=== PATIENT | female | born 1925 | race Caucasian/White ===

== ENCOUNTER 2016-09-04 11:19 | Observation (INO) | payer MEDICARE ==
[2016-09-04] MEDS ORDERED: Pepcid 20 MG VIAL IV ONE ×2 (11:29→11:40)
--- NOTE | 2016-09-04 11:33 | ERPHSYRPT ---
- History of Present Illness Time Seen by Provider: 09/04/16 11:22 Historian: patient, EMS Patient Subjective Stated Complaint: pt arrived per ambulance from home due to abd pain under both breast that radiates to back after eating, nausea no vomiting, Triage Nursing Assessment: pt alert resp easy, skin w/d pale. cehst clear, edema to lower legs taht pt states is normal for her, pt has not been out of house for 4 years now Physician History: CC: abd pain Hx: 89 y/o patient of Dr Aleman who has been home bound for the past 4 years. She has no prior abd surgeries. She reports RUQ and epigastric abd pain radiating to her back for the past two weeks associated with eating and drinking. Started with fried chicken. No vomiting. No fever or chills. Pain continued so she came to ER per EMS. No chest pain. Pain moderate after eating. Timing/Duration: week(s) (2) Abdominal Pain Onset Location: RUQ, epigastric Pain Radiation: back Severity of Pain-Max: moderate Severity of Pain-Current: none Hx Influenza Vaccination/Date Given: Yes Hx Pneumococcal Vaccination/Date Given: Yes - Review of Systems Constitutional: Malaise, No Fever, No Chills Eyes: No Symptoms Ears, Nose, & Throat: No Symptoms Respiratory: No Cough, No Dyspnea Cardiac: No Chest Pain Abdominal/Gastrointestinal: Abdominal Pain, Nausea, No Vomiting Skin: No Rash Neurological: No Headache All Other Systems: Reviewed and Negative - Past Medical History Pertinent Past Medical History: Yes Cardiac History: High Cholesterol - Past Surgical History Past Surgical History: Yes Female Surgical History: Dilation & Curettage - Social History Smoking Status: Never smoker Exposure to second hand smoke: No Drug Use: none Patient Lives Alone: Yes (with daughter's support) - Female History Hx Last Menstrual Period: post - Nursing Vital Signs Nursing Vital Signs: Initial Vital Signs Temperature 97.5 F Temperature Source Oral Pulse Rate 93 Respiratory Rate 16 Blood Pressure [Right Arm] 151/80 Pain Intensity 3 - Physical Exam General Appearance: alert, obese, other (pleasant lady) Eye Exam: PERRL/EOMI Ears, Nose, Throat Exam: normal ENT inspection, moist mucous membranes Neck Exam: normal inspection, non-tender, supple Respiratory Exam: crackles/rales (basilar) Cardiovascular Exam: regular rate/rhythm, No murmur Gastrointestinal/Abdomen Exam: soft, tenderness (RUQ with lane's sign and some epigastric guarding) Back Exam: normal inspection Extremity Exam: pedal edema Neurologic Exam: alert, oriented x 3, cooperative, sensation nml, No motor deficits Skin Exam: warm, dry, No rash - Course Nursing assessment & vital signs reviewed: Yes EKG Interpreted by Me: RATE (96), A-fib, NORMAL AXIS, NORMAL INTERVALS (QTc 453) , NORMAL QRS, Non-specific ST Changes - Radiology Exams AAS X-ray Interpretation: Discussed w/ radiologist, Negative - Radiology Ultrasound Exam gallbladder Ultrasound: tele radiology report (cholelithiasis) Ordered Tests: Active Orders 24 hr Category Date Time Status Cath for Specimen-Straight STAT Care 09/04/16 11:22 Active EKG-ER Only STAT Care 09/04/16 11:22 Active IV Insertion STAT Care 09/04/16 11:22 Active NPO (ED) STAT Care 09/04/16 11:22 Active Rectal Temperature STAT Care 09/04/16 11:30 Active ECHO W/2D AND DOPPLER [US] Stat Exams 09/04/16 12:00 Taken GALLBLADDER [US] Stat Exams 09/04/16 11:29 Completed OBSTR/ACUTE ABDOMEN SERIES Stat Exams 09/04/16 11:29 Completed CBC W DIFF Stat Lab 09/04/16 11:40 Completed CMP Stat Lab 09/04/16 11:40 Completed CULTURE,URINE Stat Lab 09/04/16 13:19 Received LIPASE Stat Lab 09/04/16 11:40 Completed Lactic Acid Urgent Lab 09/04/16 11:34 Completed NT PRO BNP Stat Lab 09/04/16 11:40 Completed PROTIME WITH INR Stat Lab 09/04/16 11:40 Completed PTT Stat Lab 09/04/16 11:40 Completed TROPONIN Stat Lab 09/04/16 11:40 Completed UA W/ MICROSCOPIC Stat Lab 09/04/16 13:19 Completed Medication Summary Discontinued Medications Generic Name Dose Route Start Last Admin Trade Name Freq PRN Reason Stop Dose Admin Famotidine 20 mg 09/04/16 11:29 09/04/16 11:42 Pepcid 20 Mg Vial IV 09/04/16 11:30 20 mg STAT ONE Administration Famotidine Confirm 09/04/16 11:40 Pepcid 20 Mg Vial Administered 05/08/17 11:41 Dose 20 mg IV .STK-MED ONE Lab/Rad Data: Laboratory Result Diagrams 09/04/16 11:40 09/04/16 11:40 Laboratory Results 09/04/16 09/04/16 09/04/16 Range/Units 13:19 11:40 11:40 WBC (4.0-10.5) K/mm3 RBC (4.1-5.4) M/mm3 Hgb (12.0-16.0) gm/dl Hct (35-47) % MCV (78-100) fl MCH (26-32) pg MCHC (32-36) g/dl RDW (11.5-14.0) % Plt Count (150-450) K/mm3 MPV (6-9.5) fl Gran % (36.0-66.0) % Lymphocytes % (24.0-44.0) % Monocytes % (0.0-12.0) % Eosinophils % (0.00-5.0) % Basophils % (0.0-0.4) % Basophils # (0-0.4) INR 0.97 (0.8-3.0) APTT 30.0 (25.3-37.0) SECONDS Sodium (136-145) mEq/L Potassium (3.5-5.1) mEq/L Chloride (98-107) mEq/L Carbon Dioxide (21-32) mEq/L Anion Gap (5-15) MEQ/L BUN (9-20) mg/dL Creatinine (0.55-1.30) mg/dl Estimated GFR ML/MIN Glucose (70-110) MG/DL Lactic Acid (0.4-2.0) Calcium (8.5-10.1) mg/dL Total Bilirubin (0.2-1.0) mg/dL AST (15-37) U/L ALT (12-78) U/L Alkaline Phosphatase (46-116) U/L Troponin I 0.017 (0.000-0.056) ng/ml NT-Pro-B Natriuret Pep 217 (0-450) pg/ml Serum Total Protein (6.4-8.2) gm/dL Albumin (3.4-5.0) g/dL Lipase 148 (73-393) U/L Ur Collection Type CATH Urine Color YELLOW (YELLOW) Urine Appearance CLOUDY (CLEAR) Urine pH 6.0 (5-6) Ur Specific [place] 1.025 (1.005-1.025) Urine Protein 30 (Negative) Urine Glucose (UA) NEGATIVE (NEGATIVE) mg/dL Urine Ketones MODERATE-40 (NEGATIVE) Urine Nitrite NEGATIVE (NEGATIVE) Urine Bilirubin SMALL (NEGATIVE) Urine Urobilinogen 0.2 (0-1) mg/dL Urine WBC (Auto) LARGE (NEGATIVE) Urine RBC (Auto) NEGATIVE (0-5) Fazal/ul Urine Microscopic RBC 5-10 (0-2) /HPF Urine Microscopic WBC 15-25 (0-5) /HPF Ur Epithelial Cells MODERATE (FEW) /HPF Urine Bacteria MODERATE (NEGATIVE) /HPF Urine Mucus SLIGHT (NEGATIVE) /HPF Specimen Received [id number] 1300 09/04/16 09/04/16 09/04/16 Range/Units 11:40 11:40 11:34 WBC 7.2 (4.0-10.5) K/mm3 RBC 4.79 (4.1-5.4) M/mm3 Hgb 14.4 (12.0-16.0) gm/dl Hct 44.3 (35-47) % MCV 92.5 (78-100) fl MCH 30.1 (26-32) pg MCHC 32.5 (32-36) g/dl RDW 14.9 H (11.5-14.0) % Plt Count 253 (150-450) K/mm3 MPV 10.5 H (6-9.5) fl Gran % 69.7 H (36.0-66.0) % Lymphocytes % 19.2 L (24.0-44.0) % Monocytes % 10.1 (0.0-12.0) % Eosinophils % 0.7 (0.00-5.0) % Basophils % 0.3 (0.0-0.4) % Basophils # 0.02 (0-0.4) INR (0.8-3.0) APTT (25.3-37.0) SECONDS Sodium 140 (136-145) mEq/L Potassium 3.4 L (3.5-5.1) mEq/L Chloride 101 (98-107) mEq/L Carbon Dioxide 28.3 (21-32) mEq/L Anion Gap 14.2 (5-15) MEQ/L BUN 23 H (9-20) mg/dL Creatinine 1.24 (0.55-1.30) mg/dl Estimated GFR 43 ML/MIN Glucose 94 (70-110) MG/DL Lactic Acid 0.9 (0.4-2.0) Calcium 10.1 (8.5-10.1) mg/dL Total Bilirubin 0.7 (0.2-1.0) mg/dL AST 17 (15-37) U/L ALT 11 L (12-78) U/L Alkaline Phosphatase 78 (46-116) U/L Troponin I (0.000-0.056) ng/ml NT-Pro-B Natriuret Pep (0-450) pg/ml Serum Total Protein 7.4 (6.4-8.2) gm/dL Albumin 3.5 (3.4-5.0) g/dL Lipase (73-393) U/L Ur Collection Type Urine Color (YELLOW) Urine Appearance (CLEAR) Urine pH (5-6) Ur Specific [place] (1.005-1.025) Urine Protein (Negative) Urine Glucose (UA) (NEGATIVE) mg/dL Urine Ketones (NEGATIVE) Urine Nitrite (NEGATIVE) Urine Bilirubin (NEGATIVE) Urine Urobilinogen (0-1) mg/dL Urine WBC (Auto) (NEGATIVE) Urine RBC (Auto) (0-5) Fazal/ul Urine Microscopic RBC (0-2) /HPF Urine Microscopic WBC (0-5) /HPF Ur Epithelial Cells (FEW) /HPF Urine Bacteria (NEGATIVE) /HPF Urine Mucus (NEGATIVE) /HPF Specimen Received - Progress Progress Note: 09/04/16 13:54 She has paroxysmal atrial fibrillation. Echo done and pending. She has been unable to eat or drink. Called Dr Leonid Wetzel (oc) and will place in obs for cardiac evaluation and consideration of gallbladder problems. Will treat UTI. Urine culture pending. Discussed with DrGerman: Jamie Will see patient in: hospital (observation) Counseled pt/family regarding: lab results, diagnosis, need for follow-up, rad results - Departure Time of Disposition: 13:55 Departure Disposition: Observation Clinical Impression: Biliary colic, Cholelithiasis, UTI (urinary tract infection), Paroxysmal atrial fibrillation Condition: Fair Critical Care Time: No
[2016-09-04 11:50] LABS: BASOPHIL % 0.3 % (0.0-0.4); Eosinophil % 0.7 % (0.00-5.0); Granulocytes % 69.7 % (36.0-66.0); Lymphocytes % 19.2 % (24.0-44.0); Mean Cell Volume 92.5 fl (78-100); Mean Corpuscular Hemoglobin 30.1 pg (26-32); Mean Platelet Volume 10.5 fl (6-9.5); Monocytes % 10.1 % (0.0-12.0); Platelet Count 253 K/mm3 (150-450); Red Blood Count 4.79 M/mm3 (4.1-5.4); Red Cell Distribution Width 14.9 % (11.5-14.0); White Blood Count 7.2 K/mm3 (4.0-10.5)
[2016-09-04 12:07] LABS: INR 0.97 (0.8-3.0); PROTIME 10.9 SECONDS (9.95-12.35)
--- NOTE | 2016-09-04 12:14 | XRAY ---
Indication: Pain. Two-dimensional right upper quadrant abdominal sonogram performed. Comparison: None Gallbladder normally distended with 2.7 cm gallstone. No gallbladder wall thickening or pericholecystic fluid. Common bile duct measures 4 mm. No intrahepatic biliary distention. Remaining visualized portions of the liver, pancreas, and right kidney appear sonographically unremarkable. Right kidney measures 8.8 cm in length. No ascites. Impression: Cholelithiasis without cholecystitis or biliary distention.
[2016-09-04 12:16] LABS: ALBUMIN 3.5 g/dL (3.4-5.0); ANION GAP 14.2 MEQ/L (5-15); BILIRUBIN,TOTAL 0.7 mg/dL (0.2-1.0); Carbon Dioxide 28.3 mEq/L (21-32); Potassium 3.4 mEq/L (3.5-5.1); Total Protein 7.4 gm/dL (6.4-8.2)
--- NOTE | 2016-09-04 12:30 | XRAY ---
Indication: Abdominal pain and nausea. Comparison: None 2 views of the abdomen demonstrates nonspecific nonobstructed bowel gas pattern with scattered hepatic/splenic calcified granulomas. No free air. Remaining solid organs unremarkable. Osseous structures demineralized with moderate/advanced degenerative changes throughout the spine, mild double curvature scoliosis, and previous left hip arthroplasty. PA chest demonstrates clear lungs with bilateral hilar calcified nodes. Heart is not enlarged for AP portable technique. Bony thorax intact with osteopenia and deformities of both humeral heads either degenerative versus old injury. Impression: 1. Nonacute nonobstructed abdomen with chronic features. 2. Nonacute one view chest with chronic features.
[2016-09-04 12:33] LABS: TROPONIN 0.017 ng/ml (0.000-0.056)
[2016-09-04 13:22] LABS: Collection Type CATH
[2016-09-04 13:24] LABS: COMPLETE URINE MICROSCOPIC? YES
[2016-09-04 13:32] LABS: Bacteria MODERATE /HPF (NEGATIVE); Epithelial Cells MODERATE /HPF (FEW); Mucus SLIGHT /HPF (NEGATIVE); WBC 15-25 /HPF (0-5)
[2016-09-04] MEDS ORDERED: Unasyn 3GM / NaCl 100ML 100 ML IV ONE (13:53)
[2016-09-04] MEDS ORDERED: Unasyn 3GM / NaCl 100ML 100 ML ONE (13:59)
[2016-09-04] MEDS: D5W/0.45NS W/ 20mEq KCl 1000 ML 1,000 ML IV SCH (15:15)
[2016-09-04] MEDS ORDERED: MORPHINE SULFATE 2 MG INJ IV PRN (16:17)
[2016-09-04] MEDS ORDERED: Zofran 4 MG/2 ML VIAL IV PRN (16:18)
[2016-09-04] MEDS ORDERED: TYLENOL 325 MG PO PRN (16:19)
--- NOTE | 2016-09-04 17:48 | PCM.HP ---
History of Present Illness - Chief Complaint Chief Complaint: billary colic. UTI. AFIB. Date: 09/04/16 History of Present Illness: is a 89 year old female with primary Doctor in [place] but has not been seen in 4 years per patient. She has been having pain worse with eating in the right upper quadrant with radiation to the back for the past 2 weeks. she has been much weaker with the lack of eating and not able to care for herself as well. She is afraid she will fall with the increasing weakness. She lives at home in an apartment by herself and her daughter checks on her daily to prepare her meals. She does not have any chest pain no history of PR, diabetes or renal failure. She has chronic dyspnea with exertion that has been getting worse for many years. She has no palpitations and has not known to have any heart problems as well. She feels no longer able to eat without the sever pain that is lasting longer and longer she has tried tums routinely but has not made much of a difference. She has not had black or bloody stools or coffee ground emesis. If she does not eat she does not get the pain. - Review of Systems Constitutional: No Fever, No Chills Eyes: No Symptoms Ears, Nose, & Throat: No Symptoms Respiratory: No Cough, No Short Of Breath Cardiac: No Chest Pain, No Edema, No Syncope Abdominal/Gastrointestinal: Abdominal Pain, Nausea, No Diarrhea Genitourinary Symptoms: No Dysuria Musculoskeletal: Back Pain, No Neck Pain Skin: No Rash Neurological: No Dizziness, No Focal Weakness, No Sensory Changes Psychological: No Symptoms Endocrine: No Symptoms Hematologic/Lymphatic: No Symptoms Immunological/Allergic: No Symptoms Medications & Allergies Home Medications: Home Medication List Atorvastatin Calcium [Lipitor] 10 mg PO HS 09/04/16 [History Confirmed 09/04/16] B2/Vit A,C & E/Lut/Zeaxanth/Mn [Icaps Tablet] 2 each PO DAILY 09/04/16 [History Confirmed 09/04/16] Celecoxib 100 mg [celeBREX 100 MG] 200 mg BID 09/04/16 [History Confirmed ] Multivitamin with Minerals [One Daily Complete] 1 each PO DAILY 09/04/16 [ History Confirmed 09/04/16] Triamterene [Dyrenium] 100 mg DAILY 09/04/16 [History Confirmed 09/04/16] Allergies/Adverse Reactions: Allergies Allergy/AdvReac Type Severity Reaction Status Date / Time No Known Drug Allergies Allergy Unverified 09/04/16 13:55 - Past Medical History Past Medical History: Yes Neurological History: No Pertinent History ENT History: No Pertinent History Cardiac History: High Cholesterol Respiratory History: No Pertinent History Endocrine Medical History: No Pertinent History Musculoskelatal History: Arthritis History: No Pertinent History Pyscho-Social History: No Pertinent History Reproductive Disorders: No Pertinent History - Female History Hx Last Menstrual Period: post Are you now?: No - Past Surgical History Past Surgical History: Yes Neuro Surgical History: No Pertinent History Cardiac History: No Pertinent History Respiratory Surgery: No Pertinent History GI Surgical History: No Pertinent History Genitourinary Surgical Hx: No Pertinent History Musculskeletal Surgical Hx: Orthopedic Surgery Female Surgical History: Dilation & Curettage Other Surgical History: L hip replacement 2001. - Social History Smoking Status: Former smoker How long have you smoked: 1 year Exposure to second hand smoke: No Alcohol: None Drug Use: none - Physical Exam Vital Signs: Vital Signs - 24 hr Temp Pulse Resp BP Pulse Ox 09/04/16 15:03 98.1 F 90 16 136/72 95 09/04/16 14:49 98.1 F 90 16 136/72 92 L 09/04/16 14:38 98.1 F 90 136/72 09/04/16 13:18 93 H 16 151/80 92 L 09/04/16 12:50 97.5 F General Appearance: no apparent distress, alert Neurologic Exam: alert, oriented x 3, cooperative, normal mood/affect, nml cerebellar function, nml station & gait, sensation nml, No motor deficits Eye Exam: PERRL/EOMI, eyes nml inspection Ears, Nose, Throat Exam: normal ENT inspection, TMs normal, pharynx normal, moist mucous membranes Neck Exam: normal inspection, non-tender, supple, full range of motion Respiratory Exam: normal breath sounds, lungs clear, No respiratory distress Cardiovascular Exam: murmur, irregular, edema Gastrointestinal/Abdomen Exam: soft, normal bowel sounds, No tenderness, No mass Back Exam: normal inspection, normal range of motion, No CVA tenderness, No vertebral tenderness Extremity Exam: normal inspection, normal range of motion, pelvis stable Skin Exam: normal color, warm, dry, No rash Lymphatic Exam: No adenopathy Assessment/Plan (1) Biliary colic Current Visit: Yes Status: Acute Assessment & Plan: we discussed this is most likely the etiology of her pain with her symptomatic cholelithiasis. She was seen by general surgery who agrees with this. I had a long discussion today with the patient and her daughter about the treatment options and the increased risk of anesthesia with her age, conditioning status and her likely chronic atrial fibrillation and increased risk of stroke with atrial fibrillation without anticoagulation. The patient is very concerned if the pain does not get fixed she will not be able to eat and will only continue to deteriorate. She is willing to accept an increased risk of surgery and I will have anesthesia evaluate her for potential lap solo Code(s): K80.50 - CALCULUS OF BILE DUCT W/O CHOLANGITIS OR CHOLECYST W/O OBST (2) Symptomatic cholelithiasis Current Visit: Yes Status: Acute Code(s): K80.20 - CALCULUS OF GALLBLADDER W /O CHOLECYSTITIS W/O OBSTRUCTION (3) UTI (urinary tract infection) Current Visit: Yes Status: Acute Assessment & Plan: asymptomatic currently continue unasyn monitor culture Code(s): N39.0 - URINARY TRACT INFECTION, SITE NOT SPECIFIED (4) Atrial fibrillation Current Visit: Yes Status: Acute Assessment & Plan: likely chronic correct K will start metoprolol 25 bid the echo official results pending preliminary data shows no major valve and normal LVEF. Discussed risk of stroke and anticoagulation options and recommendations recommended NOAC post op patient prefers Eliquis repeat mag and k in am and replace continue tele Code(s): I48.91 - UNSPECIFIED ATRIAL FIBRILLATION
[2016-09-04] MEDS ORDERED: Zocor 10MG PO SCH (22:00)
[2016-09-04] MEDS: Pepcid 20 MG VIAL IV SCH (23:44)
[2016-09-04] MEDS: Unasyn 1.5GM / NaCl 100ML 100 ML IV SCH (23:45)
[2016-09-05] MEDS: Lopressor 25MG Tab PO SCH ×2 (00:07→09:21)
[2016-09-05] MEDS: Unasyn 1.5GM / NaCl 100ML 100 ML IV SCH ×2 (05:39→12:20)
[2016-09-05 05:53] LABS: Carbon Dioxide 27.2 mEq/L (21-32); MAGNESIUM 1.6 mg/dL (1.8-2.4); Potassium 3.3 mEq/L (3.5-5.1)
[2016-09-05 06:05] LABS: Mean Cell Volume 93.1 fl (78-100); Mean Corpuscular Hemoglobin 30.6 pg (26-32); Mean Platelet Volume 10.8 fl (6-9.5); Platelet Count 253 K/mm3 (150-450); Red Blood Count 4.32 M/mm3 (4.1-5.4); Red Cell Distribution Width 14.6 % (11.5-14.0); White Blood Count 6.6 K/mm3 (4.0-10.5)
[2016-09-05] MEDS: D5W/0.45NS W/ 20mEq KCl 1000 ML 1,000 ML IV SCH (07:43)
[2016-09-05 07:55] VITALS: O2SAT 92
[2016-09-05] MEDS ORDERED: POTASSIUM CHLORIDE 20 mEq IN WATER 100ML 100 ML IV ONE (07:55)
[2016-09-05] MEDS ORDERED: Magnesium 1 Gm / 100 Ml D5W*** 100 ML IV SCH (08:00)
--- NOTE | 2016-09-05 08:22 | CONS ---
CONSULT DATE: 09/04/2016 HISTORY: An 89 year-old female. She had hip replacement back in 2001. She has multiple medical problems. She takes some cholesterol medication and a water pill, according to the patient. She denies any known prior heart disease. They questioned whether she had atrial fibrillation when she was admitted. She also had some arthritis. PAST MEDICAL HISTORY: She has obesity and has chronic leg edema. She has not been seen by a heart doctor recently. PAST SURGICAL HISTORY: She had hip replacement in the past. She denies any colonoscopy in the past. MEDICATIONS: Lipitor, I-Caps, Celebrex for some arthritis. She takes multivitamins with mineral, triamterene (Dyrenium) water pill. ALLERGIES: NKDA. FAMILY HISTORY: Sister with breast cancer, mother with colon cancer. She had a brother with prostate cancer. She had ultrasound show cholelithiasis. She denied any other chronic illnesses. REVIEW OF SYSTEMS: Twelve systems reviewed per admission assessment. No chest pain or palpitations. She does wear glasses. She does have chronic leg edema. She has obesity. PHYSICAL EXAMINATION: GENERAL: No acute distress. HEENT: Sclera nonicteric. NECK: No JVD. CHEST: Equal excursion, nonlabored breathing. ABDOMEN: Soft, some mild tenderness epigastrium right upper quadrant. No peritoneal signs. She is morbidly obese. EXTREMITIES: Edema bilaterally. NEURO: Alert, moving extremities grossly symmetrically. LAB DATA AND TESTS: She had an ultrasound show cholelithiasis, no wall thickening or pericholecystic fluid, no ductal dilatation. White blood cell count 7.2, hemoglobin 14.4, PLT 253,000. Lipase 148. Liver function test within normal limits. Total bilirubin 0.7, alkaline phosphatase 78, lactic acid 0.9. IMPRESSION: History of some acute epigastric right upper quadrant pain radiating to her back over the past couple of weeks worse with almost eating anything. She does have cholelithiasis. Whether this is symptomatic cholelithiasis, acute exacerbation of chronic cholecystitis versus other etiology is unclear. There is question whether she has atrial fibrillation. If she is medically cleared will off the patient cholecystectomy given her symptoms and her epigastric right upper quadrant pain radiating to her back and known gallstones on ultrasound. General risk of bleeding or infection, risk of trocar injury or hernia, small risk bowel, bladder or blood vessel injury, small risk of bile leak, bile duct injury, retained stone or sludge possibly requiring further procedure either open or ERCP, general risk of anesthesia, deep venous thrombosis, pulmonary embolism, pneumonia, perioperative risk of aches, pains, bloating, constipation and/or loose stools possibly chronic in nature, possibility that the procedure may not improve her symptoms, that she may need further work up and/or testing, endoscopy, other study or procedures. She understands and she is agreeable when she receives medical clearance. However she needs medical clearance at this point and her medical physician will decide if she needs cardiac clearance and she will need anesthesia to evaluate her to see if she is a candidate. When she is completely cleared then can proceed with cholecystectomy as soon as tomorrow p.m. if OR time available. Either way no immediate emergent surgery necessary. She also understands the risk of cardiopulmonary event given her comorbidities.
[2016-09-05] MEDS ORDERED: [UNRECOGNIZED DRUG - OTHER] IV ONE (08:30)
[2016-09-05] MEDS ORDERED: MAGNESIUM SULFATE IV ONE ×4 (08:30)
[2016-09-05] MEDS ORDERED: POTASSIUM CHLORIDE IV ONE ×3 (08:30)
[2016-09-05] MEDS ORDERED: [UNRECOGNIZED DRUG - OTHER] IV ONE ×3 (08:30)
[2016-09-05] MEDS ORDERED: POTASSIUM PHOSPHATE IV ONE (08:30)
--- NOTE | 2016-09-05 08:32 | PCM.DCORD ---
- Discharge Discharge Date: 09/05/16 Disposition: HOME HEALTH SERVICE Condition: Fair Prescriptions: New Cefuroxime Axetil [Cefuroxime] 250 mg PO BID #14 tablet Nadolol [Corgard] 20 mg PO DAILY #30 tablet Apixaban [Eliquis] 5 mg PO BID #60 tablet Esomeprazole Magnesium [Nexium 24Hr] 20 mg PO DAILY #30 tablet.dr Continue Celecoxib 100 mg [celeBREX 100 MG] 200 mg BID Atorvastatin Calcium [Lipitor] 10 mg PO HS Triamterene [Dyrenium] 100 mg DAILY Multivitamin with Minerals [One Daily Complete] 1 each PO DAILY B2/Vit A,C & E/Lut/Zeaxanth/Mn [Icaps Tablet] 2 each PO DAILY Follow up with: FATEMEH GREENE [Primary Care Provider] - CORAZON NAJERA [ACTIVE STAFF] - 1 Week
[2016-09-05] MEDS: Pepcid 20 MG VIAL IV SCH (09:20)
[2016-09-05] MEDS ORDERED: ELIQUIS PO SCH (10:00)
[2016-09-05] MEDS ORDERED: [UNRECOGNIZED DRUG - OTHER] PO SCH (10:00)
[2016-09-05] MEDS ORDERED: Ocuvite Tablet PO SCH (10:00)
[2016-09-05 12:24] VITALS: BP 115/61; PULSE 83
--- NOTE | 2016-09-05 14:02 | PCM.DS ---
Discharge Summary Date of Admission: 09/04/16 14:36 Date of Discharge: 09/05/16 Admitting Physician: MARIA G MATTHEW Primary Care Provider: FATEMEH GREENE Allergies Allergies No Known Drug Allergies Allergy (Unverified 09/04/16 13:55) Hospital Summary - Hospital Course Hospital Course: Ms. Rocha is a very pleasant 89y/o female who has been home bound for the last 4 years due to progressively worsening arthritis that limits her mobility. She had not left her home until calling the ambulance yesterday due to severe right upper quadrant pain that radiated to the back that was very severe and had been worsening over the last 2 weeks associated with eating. She had no vomiting but was not eating much the last 2 weeks and getting more weak and unsteady on her feet. She usually ambulates on her own in her home with her walker from her bed to her chair to the bathroom but not outside the home. Her daughter checks on her daily and prepares her meals. She was initially admitted for symptomatic cholelithiasis without cholecystitis and she was found to have atrial fibrillation which was asymptomatic and she was unaware of any previous heart problems. She was started on beta marilu and eliquis. She tolerated well. 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 Start nexium to rule out PUD cause to the symptoms and continue with a low fat diet and outpatient follow up with cardiology and home health PT/OT/RN to improve strength and conditioning to prevent falls. Echo was done when she was in the ED final results are pending does appear to have normal EF without significant valve problems. Urine was concerning for UTI and she will be continued on cefuroxime with the culture currently pending. - Vitals & Intake/Output Vital Signs: Vital Signs Temperature 97.7 F 09/05/16 12:00 Pulse Rate 83 09/05/16 12:00 Respiratory Rate 20 09/05/16 12:00 Blood Pressure 115/61 09/05/16 12:00 O2 Sat by Pulse Oximetry 92 L 09/05/16 12:00 Intake & Output: Intake & Output 09/03/16 09/04/16 09/05/16 09/06/16 11:59 11:59 11:59 11:59 Intake Total 1196 Balance 1196 Weight 101.831 kg - Lab Result Diagrams: 09/05/16 05:30 09/05/16 12:55 Lab Results-Last 24 Hrs: Lab Results-Last 24 Hours 09/05/16 09/05/16 09/05/16 Range/Units 05:30 05:30 12:55 WBC 6.6 (4.0-10.5) K/mm3 RBC 4.32 (4.1-5.4) M/mm3 Hgb 13.2 (12.0-16.0) gm/dl Hct 40.2 (35-47) % MCV 93.1 (78-100) fl MCH 30.6 (26-32) pg MCHC 32.8 (32-36) g/dl RDW 14.6 H (11.5-14.0) % Plt Count 253 (150-450) K/mm3 MPV 10.8 H (6-9.5) fl Sodium 141 (136-145) mEq/L Potassium 3.3 L 3.7 (3.5-5.1) mEq/L Chloride 103 (98-107) mEq/L Carbon Dioxide 27.2 (21-32) mEq/L Anion Gap 14.0 (5-15) MEQ/L BUN 19 (9-20) mg/dL Creatinine 1.21 (0.55-1.30) mg/dl Estimated GFR 45 ML/MIN Glucose 95 (70-110) MG/DL Calcium 9.3 (8.5-10.1) mg/dL Magnesium 1.6 L (1.8-2.4) mg/dL Discharge Exam General Appearance: no apparent distress, alert Neurologic Exam: alert, oriented x 3, cooperative, normal mood/affect, nml cerebellar function, sensation nml, No motor deficits Skin Exam: normal color, warm, dry Eye Exam: PERRL, EOMI, eyes nml inspection Ears, Nose, Throat Exam: normal ENT inspection, pharynx normal, moist mucous membranes Neck Exam: normal inspection, non-tender, supple, full range of motion Respiratory Exam: normal breath sounds, lungs clear, No respiratory distress Cardiovascular Exam: murmur, irregular, edema Gastrointestinal/Abdomen Exam: soft, No tenderness, No mass Extremity Exam: normal inspection, normal range of motion Back Exam: normal inspection, normal range of motion, No CVA tenderness, No vertebral tenderness Pelvic Exam: deferred Rectal Exam: deferred Final Diagnosis/Problem List - Final Discharge Diagnosis/Problem (1) Biliary colic Current Visit: Yes Status: Acute (2) Symptomatic cholelithiasis Current Visit: Yes Status: Acute (3) UTI (urinary tract infection) Current Visit: Yes Status: Acute (4) Atrial fibrillation Current Visit: Yes Status: Acute - Discharge Discharge Date: 09/05/16 Disposition: HOME HEALTH SERVICE Condition: Fair Prescriptions: New Cefuroxime Axetil [Cefuroxime] 250 mg PO BID #14 tablet Nadolol [Corgard] 20 mg PO DAILY #30 tablet Apixaban [Eliquis] 5 mg PO BID #60 tablet Esomeprazole Magnesium [Nexium 24Hr] 20 mg PO DAILY #30 tablet.dr Continue Celecoxib 100 mg [celeBREX 100 MG] 200 mg BID Atorvastatin Calcium [Lipitor] 10 mg PO HS Triamterene [Dyrenium] 100 mg DAILY Multivitamin with Minerals [One Daily Complete] 1 each PO DAILY B2/Vit A,C & E/Lut/Zeaxanth/Mn [Icaps Tablet] 2 each PO DAILY Instructions: Atrial Fibrillation, Gallstones Additional Instructions: [facility] TO CALL PT IN 24-48 HOURS TO SET UP TIME FOR ASSESSMENT. YOU CAN REACH THEM AT [phone]. Follow up with: FATEMEH GREENE [Primary Care Provider] - Call for Appointment CORAZON NAJERA [ACTIVE STAFF] - 09/19/16 3:00 pm Forms: Discharge Instructions
--- NOTE | 2016-09-05 15:38 | ECHO ---
DATE OF PROCEDURE: 09/04/2016 CLINICAL INFORMATION: Atrial fibrillation. The M-mode 2D, and Doppler echocardiogram including color flow Doppler shows normal contractility of the left ventricle. There is no thrombus noted in the left ventricular apex. The septal wall thickness is increased at 1.5 cm. The left ventricular posterior wall thickness is increased at 1.4 cm. There is no thrombus in the apical portion of the left ventricle. The left ventricular ejection fraction is calculated at 66%. There is normal contractility of the left ventricle. The right ventricle is grossly normal in size and function. The left atrium is normal with a dimension of 3.2 cm. The intra-atrial septum is intact. The right atrium is normal in size. The aortic valve leaflets open well. There is mild mitral regurgitation present. There is mild tricuspid regurgitation. The right ventricular systolic pressure is normal at 23 mm of Mercury. The pulmonic valve is not well visualized. The aortic root is 3.5 cm in diameter. There is no pericardial effusion present. IMPRESSION: 1) NORMAL CONTRACTILITY OF THE LEFT VENTRICLE. 2) EVIDENCE OF IMPAIRED LEFT VENTRICULAR RELAXATION. 3) THERE IS MILD MITRAL REGURGITATION. 4) THERE IS MILD TRICUSPID REGURGITATION. 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
== END 2016-09-05 14:15 | disposition home health service (06) ==
LOC: ED 11:19 → MED SURG 14:36
PROVIDERS: ADMIT Family Medicine; ATTEND Family Medicine
DX: K80.50 Calculus of bile duct without cholangitis or cholecystitis without obstruction (principal); K80.20 Calculus of gallbladder without cholecystitis without obstruction; N39.0 Urinary tract infection, site not specified; I48.91 Unspecified atrial fibrillation; Z79.01 Long term (current) use of anticoagulants; Z79.899 Other long term (current) drug therapy
CPT/HCPCS: 36000; 36415; 74022; 76705; 80048; 80053; 81000; 83605; 83690; 83735; 83880; 84132; 84484; 85025; 85027; 85610; 85730; 87086; 93005; 93268; 93306; 96365; 96374; 99285; G0378; J0295; J2270; J3475; J3480; P9612; A9270-GY